=== PATIENT | male | born 1980 | race Caucasian/White ===

== ENCOUNTER 2020-01-13 12:24 | Emergency (ER) | payer BC ==
[2020-01-13] MEDS ORDERED: Ketorolac 15 MG/ML SDV IVPUSH ONE (12:34)
[2020-01-13] MEDS ORDERED: Sodium Chloride 0.9% 2.5 ML Syringe FLUSH PRN (12:34)
[2020-01-13] MEDS ORDERED: Ondansetron 4 MG/2 ML SDV IVPUSH ONE (12:34)
[2020-01-13] MEDS ORDERED: Morphine 4 MG/ML Syringe IVPUSH ONE (12:34)
[2020-01-13] MEDS ORDERED: Pantoprazole 40 MG in Sodium Chloride 0.9% 10 ML IV ONE (12:34)
[2020-01-13] MEDS ORDERED: Sodium Chloride 0.9% 10 ML Syringe FLUSH PRN (12:34)
--- NOTE | 2020-01-13 12:38 | EDM.PDOC ---
ED HPI GENERAL MEDICAL PROBLEM - General Chief Complaint: Flank Pain Stated Complaint: LT SIDE ABDOMINAL PAIN INTO BACK Time Seen by Provider: 01/13/20 12:26 Source of Information: Reports: Patient History Limitations: Reports: No Limitations - History of Present Illness INITIAL COMMENTS - FREE TEXT/NARRATIVE: History of present illness: [Patient is 39-year-old male presents with epigastric pain that radiates to his back. Pain started couple days ago. Is associated with belching and heartburn type pain. He has had issues with his stomach in the past. Reports that he has had a previous endoscopy in the past as well. States it was negative for ulcers or any other acute problems that he can recall. Denies fever. Denies vomiting and diarrhea. Denies history of kidney stones. Denies dysuria or hematuria. Denies change in urinary output. Denies history of pancreatitis. Denies recent binge drinking. Denies history of gallstones.] Review of systems: As per history of present illness and below otherwise all systems reviewed and negative. Past medical history: As per history of present illness and as reviewed below otherwise noncontributory. Surgical history: As per history of present illness and as reviewed below otherwise noncontributory. Social history: No reported history of drug or alcohol abuse. Family history: As per history of present illness and as reviewed below otherwise noncontributory. Physical exam: General: Awake, alert, no acute distress, A&O X3. HEENT: Atraumatic, normocephalic, pupils reactive, negative for conjunctival p allor or scleral icterus, mucous membranes moist, throat clear, neck supple, nontender, trachea midline. Lungs: Clear to auscultation, breath sounds equal bilaterally, chest nontender. Heart: RRR, normal S1S2, no JVD. Abdomen: Soft, nondistended, mild epigastric tenderness. Negative for masses or hepatosplenomegaly. Negative for costovertebral tenderness. Pelvis: Stable nontender. Genitourinary: Deferred. Rectal: Deferred. Extremities: Atraumatic, no edema, Neurovascular unremarkable. Neuro: Motor and sensory grossly intact throughout. Exam nonfocal. Diagnostics: [] Therapeutics: [] Impression: [] Plan: [] Definitive disposition and diagnosis as appropriate pending reevaluation and review of above. Abdomen Pain Score (Numeric/FACES): 5 - Related Data Allergies Allergy/AdvReac Type Severity Reaction Status Date / Time No Known Allergies Allergy Verified 01/13/20 12:36 Home Meds: Home Meds . [No Known Home Meds] 01/13/20 [History] ED ROS GENERAL - Review of Systems Review Of Systems: Comprehensive ROS is negative, except as noted in HPI. ED EXAM, GI/ABD - Physical Exam Exam: See Below (see h and p) EKG INTERPRETATION EKG Date: 01/13/20 Time: 12:46 Rhythm: NSR Rate (Beats/Min): 71 [place]: Normal P-Wave: Present QRS: Normal ST-T: Normal QT: Normal Course - Vital Signs Text/Narrative:: Patient feels better after getting medicated here in the ED. Troponin negative, EKG nonischemic, labs are reassuring, ultrasound of the right upper quadrant/liver/pancreas unremarkable. Lipase within normal limits. Patient is stable vital signs, nontoxic in appearance. Because he is feeling better I believe he is appropriate for outpatient management and discharge home. I encouraged him to use [id number] medications to help manage his symptoms including acid blockers like Pepcid and Tums as needed. I do believe there is indication for CT scan of his belly at this time. Symptoms have improved, nothing to suggest bowel obstruction, his epigastric pain has significantly improved, he has no right lower quadrant tenderness, no findings that would suggest appendicitis or other surgical abnormality in the abdomen or pelvis. Return precautions provided. Patient understands this plan and is agreeable with it. Stable and well-appearing at discharge. Last Recorded V/S: Last Vital Signs Temp 36.5 C 01/13/20 14:06 Pulse 82 01/13/20 14:06 Resp 14 01/13/20 14:06 BP 110/70 01/13/20 14:06 Pulse Ox 99 01/13/20 14:06 - Orders/Labs/Meds Orders: Active Orders 24 hr Category Date Time Status EKG Documentation Completion [RC] STAT Care 01/13/20 12:34 Active Sodium Chloride 0.9% [Saline Flush] Med 01/13/20 12:34 Active 10 ml FLUSH ASDIRECTED PRN Sodium Chloride 0.9% [Saline Flush] Med 01/13/20 12:34 Active 2.5 ml FLUSH ASDIRECTED PRN Saline Lock Insert [OM.PC] Stat Oth 01/13/20 12:34 Ordered Medication Orders Sodium Chloride (Saline Flush) 10 ml FLUSH ASDIRECTED PRN PRN Reason: Keep Vein Open Last Admin: 01/13/20 13:03 Dose: 10 ml Documented by: RYLEY Sodium Chloride (Saline Flush) 2.5 ml FLUSH ASDIRECTED PRN PRN Reason: Keep Vein Open Last Admin: 01/13/20 13:18 Dose: 2.5 ml Documented by: RYLEY Labs: Laboratory Tests 01/13/20 01/13/20 01/13/20 Range/Units 12:49 12:58 12:58 WBC 8.14 (4.0-11.0) K/uL RBC 4.57 (4.50-5.90) M/uL Hgb 15.2 (13.0-17.0) g/dL Hct 44.4 (38.0-50.0) % MCV 97.2 (80.0-98.0) fL MCH 33.3 H (27.0-32.0) pg MCHC 34.2 (31.0-37.0) g/dL RDW Std Deviation 44.8 (28.0-62.0) fl RDW Coeff of Niyah 13 (11.0-15.0) % Plt Count 164 (150-400) K/uL MPV 9.50 (7.40-12.00) fL Neut % (Auto) 66.4 (48.0-80.0) % Lymph % (Auto) 22.7 (16.0-40.0) % [place] % (Auto) 9.3 (0.0-15.0) % Eos % (Auto) 1.5 (0.0-7.0) % Baso % (Auto) 0.1 (0.0-1.5) % Neut # (Auto) 5.4 (1.4-5.7) K/uL Lymph # (Auto) 1.9 (0.6-2.4) K/uL [place] # (Auto) 0.8 (0.0-0.8) K/uL Eos # (Auto) 0.1 (0.0-0.7) K/uL Baso # (Auto) 0.0 (0.0-0.1) K/uL Nucleated RBC % 0.0 /100WBC Nucleated RBCs # 0 K/uL Sodium 137 (136-148) mmol/L Potassium 4.1 (3.5-5.1) mmol/L Chloride 102 (98-107) mmol/L Carbon Dioxide 26.3 (21.0-32.0) mmol/L BUN 14 (7.0-18.0) mg/dL Creatinine 1.0 (0.8-1.3) mg/dL Est Cr Clr Drug Dosing 119.71 mL/min Estimated GFR (MDRD) > 60.0 ml/min Glucose 104 (74-106) mg/dL Calcium 9.4 (8.5-10.1) mg/dL Total Bilirubin 0.8 (0.2-1.0) mg/dL AST 17 (15-37) IU/L ALT 31 (14-63) IU/L Alkaline Phosphatase 36 L (46-116) U/L Troponin I < 0.050 (0.000-0.056) ng/mL Total Protein 8.2 (6.4-8.2) g/dL Albumin 4.5 (3.4-5.0) g/dL Globulin 3.7 (2.6-4.0) g/dL Albumin/Globulin Ratio 1.2 (0.9-1.6) Lipase 138 (73-393) U/L Urine Color YELLOW Urine Appearance HAZY Urine pH 6.0 (5.0-8.0) Ur Specific [place] 1.025 (1.001-1.035) Urine Protein NEGATIVE (NEGATIVE) mg/dL Urine Glucose (UA) NEGATIVE (NEGATIVE) mg/dL Urine Ketones TRACE H (NEGATIVE) mg/dL Urine Occult Blood NEGATIVE (NEGATIVE) Urine Nitrite NEGATIVE (NEGATIVE) Urine Bilirubin NEGATIVE (NEGATIVE) Urine Urobilinogen 0.2 (<2.0) EU/dL Ur Leukocyte Esterase NEGATIVE (NEGATIVE) Urine RBC 0-2 (0-2/HPF) Urine WBC 0-2 (0-5/HPF) Ur Epithelial Cells RARE (NONE-FEW) Urine Bacteria FEW (NEGATIVE) Meds: Medications Generic Name Dose Route Start Last Admin Trade Name Freq PRN Reason Stop Dose Admin Sodium Chloride 10 ml 01/13/20 12:34 01/13/20 13:03 Saline Flush FLUSH 10 ml ASDIRECTED PRN Administration Keep Vein Open Sodium Chloride 2.5 ml 01/13/20 12:34 01/13/20 13:18 Saline Flush FLUSH 2.5 ml ASDIRECTED PRN Administration Keep Vein Open Discontinued Medications Generic Name Dose Route Start Last Admin Trade Name Cesario PRN Reason Stop Dose Admin Al Hydroxide/Mg Hydroxide 15 0 ml 01/13/20 13:34 01/13/20 14:04 ml/ Lidocaine HCl 5 ml PO 01/13/20 13:35 1 each ONETIME ONE Administration Pantoprazole Sodium 40 mg/ 10 mls @ 300 mls/hr 01/13/20 12:34 01/13/20 13:01 Sodium Chloride IV 01/13/20 12:35 300 mls/hr NOW ONE Administration Ketorolac Tromethamine 15 mg 01/13/20 12:34 01/13/20 13:02 Toradol IVPUSH 01/13/20 12:35 15 mg ONETIME ONE Administration Morphine Sulfate 4 mg 01/13/20 12:34 01/13/20 13:01 Morphine IVPUSH 01/13/20 12:35 4 mg ONETIME ONE Administration Ondansetron HCl 4 mg 01/13/20 12:34 01/13/20 13:02 Zofran IVPUSH 01/13/20 12:35 4 mg ONETIME ONE Administration Departure - Departure Time of Disposition: 14:03 Disposition: Home, Self-Care 01 Condition: Good Clinical Impression: Epigastric pain, Gastritis - Discharge Information Instructions: Gastritis, Adult, [id number] Referrals: PCP,Not In Area [Primary Care Provider] - Forms: ED Department Discharge Additional Instructions: Follow-up with primary care doctor. Use [id number] medications as needed and directed to treat your symptoms at home. Return to the ER with any new or worsening symptoms. The following information is given to patients seen in the emergency department who are being discharged to home. This information is to outline your options for follow-up care. We provide all patients seen in our emergency department with a follow-up referral. The need for follow-up, as well as the timing and circumstances, are variable depending upon the specifics of your emergency department visit. If you don't have a primary care physician on staff, we will provide you with a referral. We always advise you to contact your personal physician following an emergency department visit to inform them of the circumstance of the visit and for follow-up with them and/or the need for any referrals to a consulting specialist. The emergency department will also refer you to a specialist when appropriate. This referral assures that you have the opportunity for follow-up care with a specialist. All of these measure are taken in an effort to provide you with optimal care, which includes your follow-up. Under all circumstances we always encourage you to contact your private physician who remains a resource for coordinating your care. When calling for fo llow-up care, please make the office aware that this follow-up is from your recent emergency room visit. If for any reason you are refused follow-up, please contact the [facility] at and asked to speak to the emergency department charge nurse. Sepsis Event Note (ED) - Focused Exam Vital Signs: Vital Signs Temp Pulse Resp BP Pulse Ox 01/13/20 14:06 36.5 C 82 14 110/70 99 01/13/20 13:44 68 112/75 94 L 01/13/20 13:24 64 128/79 94 L 01/13/20 12:30 36.2 C 81 16 135/92 H 98 - My Orders Last 24 Hours: My Active Orders 01/13/20 12:34 EKG Documentation Completion [RC] STAT Sodium Chloride 0.9% [Saline Flush] 10 ml FLUSH ASDIRECTED PRN Sodium Chloride 0.9% [Saline Flush] 2.5 ml FLUSH ASDIRECTED PRN Saline Lock Insert [OM.PC] Stat - Assessment/Plan Last 24 Hours: My Active Orders 01/13/20 12:34 EKG Documentation Completion [RC] STAT Sodium Chloride 0.9% [Saline Flush] 10 ml FLUSH ASDIRECTED PRN Sodium Chloride 0.9% [Saline Flush] 2.5 ml FLUSH ASDIRECTED PRN Saline Lock Insert [OM.PC] Stat
--- NOTE | 2020-01-13 13:01 | CR ---
Chest: Portable view of the chest was obtained. Comparison: No prior chest imaging. Heart size and mediastinum are normal. Lungs are clear with no acute parenchymal change. Bony structures are grossly intact. Impression: 1. Nothing acute is seen on portable chest x-ray. Diagnostic code #1 This report was dictated in MDT
[2020-01-13 13:30] LABS: BLOOD UREA NITROGEN,BUN 14 mg/dL (7.0-18.0); CARBON DIOXIDE,CO2 26.3 mmol/L (21.0-32.0); CHLORIDE,CL 102 mmol/L (98-107); GLUCOSE RANDOM 104 mg/dL (74-106); LIPASE 138 U/L (73-393); POTASSIUM,K 4.1 mmol/L (3.5-5.1); SODIUM,NA 137 mmol/L (136-148)
[2020-01-13] MEDS ORDERED: Alum Hydrox/Mag Hydrox/Simeth 15 ML, Lidocaine 2% 5 ML PO ONE ×2 (13:34)
--- NOTE | 2020-01-13 13:54 | US ---
Limited abdominal ultrasound: Multiple real-time images of the upper right abdomen were obtained. Comparison: No prior abdominal imaging is available. Liver is diffusely echogenic. No focal abnormality is appreciated. Gallbladder contains no shadowing gallstones. No gallbladder wall thickening or biliary duct dilatation is seen. Pancreas is incompletely seen. Visualized portions of the pancreas appear within normal limits. Inferior vena cava is patent. Measurements: Right kidney length: 11.0 cm Impression: 1. Diffusely echogenic liver most likely representing fatty infiltration. 2. No additional abnormality is appreciated on right upper quadrant abdominal ultrasound. Diagnostic code #3 This report was dictated in MDT
[2020-01-13 14:11] VITALS: BP 110/70; PULSE 82
== END 2020-01-13 14:09 | disposition home or self-care (01) ==
LOC: MW.ED 12:24
DX: K29.70 Gastritis, unspecified, without bleeding (principal)
CPT/HCPCS: 36415; 71045; 76705; 80053; 81001; 83690; 84484; 85025; 93005; 96374; 96375; 99284; A9270; C9113; J1885; J2270; J2405; J7050; 99283